=== PATIENT | male | born 1990 | race Caucasian/White ===

== ENCOUNTER 2024-12-12 16:18 | Emergency (ER) | payer OTHER, SELFPAY ==
[2024-12-12 16:28] VITALS: BP 124/89; PULSE 100; RESP 16; TEMP 36.6; O2SAT 98
--- NOTE | 2024-12-12 16:31 | ED_ITS ---
HPI - General Adult General Chief complaint: Skin/Abscess/Foreign Body Stated complaint: RECTAL BLEED/HEMORRHOIDS Time Seen by Provider: 12/12/24 16:31 Source: patient Mode of arrival: ambulatory Limitations: no limitations History of Present Illness HPI narrative: 34-year-old male presents with complaint of hemorrhoids. Reports that hemorrhoids have been actively bleeding. Reports history of hemorrhoids. Last time he had had moist he used prescribed steroid suppositories that helped. Patient has been using preparation H with no relief. Does not have a primary care physician. In the past has not needed to see a specialist due to hemorrhoids. All systems reviewed and negative except as noted above. Related Data Allergies Allergy/AdvReac Type Severity Reaction Status Date / Time No Known Allergies Allergy Verified 12/12/24 16:30 Review of Systems Review of Systems: CONSTITUTIONAL: Denies fever, chills, or sweats. EYES: Denies visual changes, redness, or discharge. ENT: Denies rhinorrhea, congestion, sore throat, or otalgia. CARDIOVASCULAR: Denies chest pain, palpitations, or edema. RESPIRATORY: Denies cough or dyspnea. GASTROINTESTINAL: Denies abdominal pain, nausea, vomiting, or diarrhea. Reports bleeding hemorrhoids. GENITOURINARY: Denies dysuria or hematuria. SKIN: Denies rash or itching. MUSCULOSKELETAL: Denies back pain, joint pain, or myalgia. NEUROLOGIC: Denies headache, numbness, or weakness. PSYCHIATRIC: Denies anxiety or depression. All other systems reviewed are negative, except as documented in HPI. PMFSH Comments Reviewed Exam Narrative: GENERAL: This is a well-nourished, well-developed patient, in no apparent distress. HEAD: normocephalic, atraumatic. EYES: PERRL. Sclera clear/white. Vision is grossly intact. EARS: External ears normal NOSE: External nose normal NECK: Neck supple, non-tender without lymphadenopathy, masses or thyromegaly. CARDIOVASCULAR: Regular rate and rhythm without murmurs, gallops, or rubs. RESPIRATORY: Clear to auscultation. Breath sounds equal bilaterally. No wheezes, rales, or rhonchi. SKIN: warm, Dry, intact with no suspicious lesions or rash, good texture and turgor. NEURO: awake, alert, and oriented to person, place and time. There were no obvious focal neurologic abnormalities. EXTREMITIES: No joint tenderness, effusion, or edema noted. Rectal: multiple external hemorrhoids. Small amount of active bleeding Course Course Level of Care: Express Care Visit Vital Signs Vital signs: Vital Signs Temperature 36.6 C 12/12/24 16:28 Pulse Rate 100 12/12/24 16:28 Respiratory Rate 16 12/12/24 16:28 Blood Pressure 124/89 12/12/24 16:28 Pulse Oximetry 98 12/12/24 16:28 Temperature 36.6 C 12/12/24 16:28 Pulse Rate 100 12/12/24 16:28 Respiratory Rate 16 12/12/24 16:28 Blood Pressure 124/89 12/12/24 16:28 Pulse Oximetry 98 12/12/24 16:28 Reviewed Medical Decision Making MDM Narrative Medical decision making narrative: Will refer to General surgery for follow-up. Prescribed steroid suppository, Colace. Recommend tucks wipes. Will go to ER for any worsening of symptoms. Please be advised this is a medical document. It is intended for [id number] communication. It is written in medical language and may contain unfamiliar abbreviations or verbiage. Medical documents are intended to carry relevant information, facts as evident, and the clinical opinion of the practitioner at the time of the encounter. This report may have been done utilizing a voice recognition system. Attempts have been made to correct errors. However, there may be uncorrected grammatical, spelling, and recognition errors present. The file time of this note does not necessarily represent the time of service. Vital Signs Vital Signs: Vital Signs Temperature 36.6 C 12/12/24 16:28 Pulse Rate 100 12/12/24 16:28 Respiratory Rate 16 12/12/24 16:28 Blood Pressure 124/89 12/12/24 16:28 Pulse Oximetry 98 12/12/24 16:28 Temperature 36.6 C 12/12/24 16:28 Pulse Rate 100 12/12/24 16:28 Respiratory Rate 16 12/12/24 16:28 Blood Pressure 124/89 12/12/24 16:28 Pulse Oximetry 98 12/12/24 16:28 Discharge Plan Discharge Clinical Impression: External hemorrhoids Patient Disposition: Home, Self-Care Condition: Stable Instructions: Hemorrhoids (ED) Additional Instructions: Take medications as prescribed. Drink at least 64 ounces of water a day. Schedule follow up appointment with general surgeon. Patient Language: [place] Prescriptions: New docusate sodium [Colace] 100 mg capsule 100 mg PO BID 30 Days Qty: 60 0RF hydrocortisone acetate [Anusol-HC] 25 mg suppository 25 mg RECTAL BID 14 Days Qty: 100 0RF Follow-up/Referrals: Wally Montalvo MD [Physician] - (follow up for further evaluation of hemorrhoids) PHYSICIAN,[employer]GER [Primary Care Provider] - Sunday Deras MD [Physician] - (establish care with a primary care physician) Time of Disposition: 16:42
== END 2024-12-12 17:00 | disposition home or self-care (01) ==
PROVIDERS: Emergency Provider Nurse Practitioner Family
DX: K64.4 Residual hemorrhoidal skin tags (principal)
CPT/HCPCS: 99203; G0463